=== PATIENT | male | born 1985 | race Caucasian/White ===

== ENCOUNTER 2021-08-31 02:42 | Observation (INO) ==
[2021-08-31] MEDS ORDERED: Isovue-370 500 ML BOTTLE IVP ONE (03:58)
[2021-08-31] MEDS ORDERED: Famotidine 20 MG/2 ML VIAL IVP ONE (03:58)
[2021-08-31 04:27] LABS: Basophils % 0.2 %; Eosinophils # 0.1 K/mcL (0.0-0.6); Eosinophils % 0.9 %; Hematocrit 40.7 % (37.5-50.1); Hemoglobin 13.9 g/dL (12.9-16.9); Immature Granulocytes % 0.3 % (0-4); Lymphocytes % 22.9 %; Mean Corpuscular HGB Conc 34.2 g/dL (31.6-35.5); Mean Corpuscular Hemoglobin 27.9 pg (28.0-33.3); Mean Corpuscular Volume 81.6 fL (83.0-100.0); Mean Platelet Volume 9.6 fL (9.4-12.4); Monocytes # 0.7 K/mcL (0.0-1.3); Platelet Count 217 K/mcL (140-400); Red Blood Count 4.99 M/mcL (4.19-5.50); Segmented Neutrophils % 67.7 %; White Blood Count 8.8 K/mcL (4.3-11.1)
[2021-08-31 04:45] LABS: Alanine Aminotransferase 57 Units/L (7-52); Albumin 4.1 g/dL (3.5-5.7); Albumin/Globulin Ratio 1.5 (1.1-2.2); Alkaline Phosphatase 83 Units/L (34-104); Aspartate Amino Transferase 28 Units/L (13-39); BUN/Creatinine Ratio 12 (6-26); Bilirubin,Direct 0.1 mg/dL (0.0-0.2); Bilirubin,Indirect 0.6 mg/dL (0.0-1.0); Bilirubin,Total 0.7 mg/dL (0.3-1.0); Blood Urea Nitrogen 11 mg/dL (6-20); Calcium 9.9 mg/dL (8.6-10.3); Carbon Dioxide 26 mEq/L (23-29); Chloride 104 mEq/L (98-107); Globulin 2.8 g/dL (2.4-3.5); Glucose 107 mg/dL (70-105); Lipase 425 Units/L (11-82); Osmolality,Calculated 284 (280-300); Potassium 3.9 mEq/L (3.5-5.1); Sodium 137 mEq/L (136-145); Total Protein 6.9 g/dL (6.4-8.9); eGFR For African Americans > 60 (> 60); eGFR For Non-African Americans > 60 (> 60)
[2021-08-31] MEDS ORDERED: Ringers Solution, Lactated 1,000 ML IVC ONE (06:46)
[2021-08-31] MEDS ORDERED: Morphine Sulfate 2 MG/ML SYRINGE IVP ONE (06:49)
[2021-08-31] MEDS ORDERED: Ondansetron ODT 4 MG TAB.RAPDIS SL PRN (07:31)
[2021-08-31] MEDS ORDERED: Naloxone 0.4 MG/ML INJ IVP PRN (07:31)
[2021-08-31] MEDS ORDERED: Mag Hydrox/Al Hydrox/Simeth 30 ML UDC PO PRN (07:31)
[2021-08-31] MEDS ORDERED: Melatonin 3 MG TABLET PO PRN (07:31)
[2021-08-31 08:04] LABS: Chol/HDL Ratio 4.6 (0-4.9); Cholesterol 217 mg/dL (< 200); HDL Cholesterol 47 mg/dL (40-59); LDL Cholesterol,Calculated 134 mg/dL (< 100); Triglycerides 178 mg/dL (< 150)
[2021-08-31] MEDS: 0.9 % Sodium Chloride 1,000 ML IVC SCH ×2 (09:22→14:19)
[2021-09-01 02:56] VITALS: PULSE 71; O2SAT 97
[2021-09-01 03:07] LABS: Basophils % 0.4 %; Eosinophils # 0.1 K/mcL (0.0-0.6); Eosinophils % 1.4 %; Hematocrit 38.7 % (37.5-50.1); Hemoglobin 12.9 g/dL (12.9-16.9); Immature Granulocytes % 0.5 % (0-4); Lymphocytes # 2.1 K/mcL (0.6-4.6); Lymphocytes % 26.6 %; Mean Corpuscular HGB Conc 33.3 g/dL (31.6-35.5); Mean Corpuscular Hemoglobin 27.7 pg (28.0-33.3); Mean Corpuscular Volume 83.2 fL (83.0-100.0); Mean Platelet Volume 9.5 fL (9.4-12.4); Monocytes # 0.8 K/mcL (0.0-1.3); Monocytes % 9.8 %; Neutrophils # 4.7 K/mcL (1.6-8.9); Platelet Count 181 K/mcL (140-400); Red Blood Count 4.65 M/mcL (4.19-5.50); Segmented Neutrophils % 61.3 %; White Blood Count 7.7 K/mcL (4.3-11.1)
[2021-09-01 03:25] LABS: Alanine Aminotransferase 48 Units/L (7-52); Albumin 3.6 g/dL (3.5-5.7); Albumin/Globulin Ratio 1.4 (1.1-2.2); Alkaline Phosphatase 72 Units/L (34-104); Aspartate Amino Transferase 25 Units/L (13-39); BUN/Creatinine Ratio 9 (6-26); Bilirubin,Total 1.8 mg/dL (0.3-1.0); Blood Urea Nitrogen 9 mg/dL (6-20); Calcium 8.6 mg/dL (8.6-10.3); Carbon Dioxide 24 mEq/L (23-29); Chloride 106 mEq/L (98-107); Globulin 2.6 g/dL (2.4-3.5); Glucose 93 mg/dL (70-105); Osmolality,Calculated 282 (280-300); Potassium 4.2 mEq/L (3.5-5.1); Sodium 137 mEq/L (136-145); Total Protein 6.2 g/dL (6.4-8.9); eGFR For African Americans > 60 (> 60); eGFR For Non-African Americans > 60 (> 60)
[2021-09-01 07:00] VITALS: BP 131/83; TEMP 97.6
== END 2021-09-01 10:44 | disposition home or self-care (01) ==
LOC: SUATTDRO → EMEROOARM 02:42 → 3ANU 02:42 → SUATTDRO 07:34 → 3ANU 08:37
PROVIDERS: ADMIT Family Medicine; ATTEND Internal Medicine